=== PATIENT | male | born 1995 | race Caucasian/White ===

== ENCOUNTER 2024-04-20 00:24 | Emergency (ER) | payer OTHER ==
[~2024-04-20] VITALS: Ht 165.1 cm; Wt 94.3 kg
[2024-04-20 00:35] VITALS: BP_SYST 129; PULSE 94; RESP 16; TEMP 97.8; O2SAT 96
[2024-04-20] MEDS: ALBUTEROL SULFATE 0.083% 2.5 MG/3 ML VIAL.NEB INH ONE (01:44)
[2024-04-20] MEDS ORDERED: PIPERACILLIN/TAZO 3.375 GM in NS 50 ML IV ONE (02:30)
[2024-04-20] MEDS: cefTRIAXone 1 GM IVPB PREMIX 50 ML IV ONE (03:40)
[2024-04-20 04:02] LABS: BASOPHILS # (AUTO) 0.1 K/uL (0.0-0.2); EOSINOPHILS # (AUTO) 0.5 K/uL (0.0-0.4); EOSINOPHILS % (AUTO) 6.7 % (0.0-4.0); HEMATOCRIT 41.3 % (36-54); HEMOGLOBIN 14.2 g/dL (14.0-18.0); LYMPHOCYTES # (AUTO) 2.4 K/uL (1.0-5.5); LYMPHOCYTES % (AUTO) 29.9 % (20.5-51.5); MEAN CORPUSCULAR HEMOGLOBIN 29 pg (27-31); MEAN CORPUSCULAR HGB CONC 34 % (32-36); MEAN CORPUSCULAR VOLUME 85 fL (79.0-98.0); MONOCYTES # (AUTO) 0.8 K/uL (0.0-1.0); MONOCYTES % (AUTO) 9.6 % (1.7-9.3); NEUTROPHILS # (AUTO) 4.3 K/uL (1.8-7.7); NEUTROPHILS % (AUTO) 52.8 % (40.0-70.0); PLATELET COUNT (AUTO) 185 K/uL (130-430); RED BLOOD CELL COUNT(AUTO) 4.87 MIL/uL (4.2-6.2); RED CELL DISTRIBUTION WIDTH 13.5 % (9.0-15.0); WHITE BLOOD COUNT (AUTO) 8.2 K/uL (4.8-10.8)
[2024-04-20 04:10] LABS: CALCIUM 8.6 mg/dL (8.4-11.0); CREATININE 1.14 mg/dL (0.55-1.30); POTASSIUM 3.2 mmol/L (3.5-5.1)
[2024-04-20] MEDS ORDERED: PIPERACILLIN/TAZOBACTAM 3.375 GM/VIAL (ZOSYN) IV ONE (05:32)
[2024-04-20] MEDS ORDERED: CLAR-61 PO (05:52)
[2024-04-20 06:10] VITALS: BP_SYST 123; PULSE 88; RESP 18; TEMP 97.2; O2SAT 97
== END 2024-04-20 06:10 | disposition home or self-care (01) ==
LOC: SED 00:24
DX: J18.9 Pneumonia, unspecified organism (principal); R06.02 Shortness of breath; R07.89 Other chest pain; Z79.2 Long term (current) use of antibiotics
CPT/HCPCS: 99285; 96365; 71250; 71045; 80048; 85025; 87040; 36415; 94640; J0696; J2543